=== PATIENT | male | born 1990 | race African-American/Black ===

== ENCOUNTER 2019-04-17 17:42 | Emergency (ER) | payer MEDICAID ==
[~2019-04-17] VITALS: Ht 180.3 cm; Wt 87.0 kg
[2019-04-17] MEDS ORDERED: CEPH250C2 PO (17:52)
[2019-04-17] MEDS ORDERED: LIDOCAINE HCL/PF 1% 10 MG/ML 5ML VIAL IJ ONE (19:45)
[2019-04-17] MEDS ORDERED: HYDROCODONE/ACETAMINOPHEN 5/325MG TABLET PO ONE (20:30)
[2019-04-17 21:56] VITALS: BP 149/89
== END 2019-04-17 21:56 | disposition home or self-care (01) ==
LOC: ER 17:42
DX: L02.31 Cutaneous abscess of buttock (principal)
CPT/HCPCS: 99283; J3490; Z7610

== ENCOUNTER 2019-04-17 23:14 | Emergency (ER) | payer MEDICAID ==
[~2019-04-17] VITALS: Ht 180.3 cm; Wt 85.0 kg
[~2019-04-17 23:14] MED LIST: CEPH250C2 PO
[2019-04-18 10:04] VITALS: BP 133/74
== END 2019-04-18 10:06 | disposition home or self-care (01) ==
LOC: ER 23:14
DX: Z04.89 Encounter for examination and observation for other specified reasons (principal); I10 Essential (primary) hypertension; F17.210 Nicotine dependence, cigarettes, uncomplicated; Z59.0 Homelessness
CPT/HCPCS: 99283